=== PATIENT | male | born 1940 | race Caucasian/White ===

== ENCOUNTER → 2017-01-23 | Outpatient (CLI) | payer MEDICARE ==
[~2017-01-23] MED LIST: ASPIRINEC; AZOR 10-40 MG1 UDTAB PO; CERTAGEN PO; CHONDROITIN; CIPRO PO; DISCONTINUED MED; GLUCOSAMINE; LIPITOR PO; NEXIUM; NIASPAN; NORVASC; PLAVIX PO; PYRIDIUM PO; STOOL SOFTENER1 EACH; TOPROL XL; TOPROL XL PO; TYLOX1 CAP 5/50
--- NOTE | ~2017-01-23 | XA30 ---
[facility] A Service of [facility] & [facility] RADIOLOGY TEXT RESULTS PATIENT: LINDSAY DAVIS LOCATION: [facility] : 40 UNIT #: [id number] AGE: [address]: Niranjan Reed MD SEX: M ORDER DR: [id number] [facility] [address] [place], [place] [address] [id number] O MR#: [id number] Acc #: [id number] NAME: LINDSAY DAVIS : 1940 SEX: M STUDY DATE/TIME: 01/23/2017 13:57 UNIT: [facility] ROOM: STUDY DESCRIPTION: XA Arthrocentesis Major Joint Attending Physician: Niranjan Reed M.D. Referring Physician: Niranjan Reed M.D. Ordering Physician: Niranjan Reed M.D. Primary Care Physician: Jonathan SerranoPShashaRTom MEDICAL IMAGING REPORT This report is preliminary unless electronic signature is present EXAM Right hip arthrocentesis 01/23/2017 HISTORY Right hip pain for many months. PROCEDURE Informed consent was obtained. Skin site was selected with fluoroscopic guidance and marked, sterilely prepped and draped and locally anesthetized. A 22-gauge spinal needle was advanced into the hip joint and intraarticular needle tip position confirmed with contrast injection. This was followed by injection of 40 mg Depo-Medrol and 2 mL of 0.5% Marcaine. Patient reported pre-procedure pain level 2:10 and postprocedure pain level 0:10. Total fluoro time 0.2 minutes Single spot image obtained IMPRESSION Successful right hip injection with Depo-Medrol and Marcaine as above. Dictated by... Ari Yan M.D. THIS IS AN ELECTRONICALLY VERIFIED REPORT Ari Yan M.D. at 01/31/2017 5:04 PM JOSE FRANCISCO/pablito TD: 01/27/2017 18:00 JOB #: [id number] MEDICAL IMAGING REPORT [facility] A Service of [facility] & [facility] RADIOLOGY TEXT RESULTS PATIENT: LINDSAY DAVIS [facility] #: [id number] : 40 UNIT #: [id number] AGE: [address]: Niranjan Reed MD SEX: M ORDER DR: Page 1 of 1 COPY
== END | disposition home or self-care (01) ==
LOC: CIVR 13:37
DX: M25.551 Pain in right hip (principal); M19.90 Unspecified osteoarthritis, unspecified site
CPT/HCPCS: 77002; J1030; Q9966

== ENCOUNTER → 2017-06-27 | Outpatient (CLI) | payer OTHER ==
--- NOTE | ~2017-06-27 | US77 ---
[facility] A Service of [facility] & [facility] RADIOLOGY TEXT RESULTS PATIENT: LINDSAY DAVIS LOCATION: [facility] : 40 UNIT #: [id number] AGE: [address]: Miguel Hoffmann MD SEX: M ORDER DR: [id number] [facility] [address] [place], [place] [address] [id number] O MR#: [id number] Acc #: [id number] NAME: LINDSAY DAVIS : 1940 SEX: M STUDY DATE/TIME: 06/27/2017 13:30 UNIT: [facility] ROOM: STUDY DESCRIPTION: US Kidney Bilateral Complete Attending Physician: Miguel Hoffmann M.D. Referring Physician: Miguel Hoffmann M.D. Ordering Physician: Miguel Hoffmann M.D. Primary Care Physician: Tamia De La Fuente A.P.R.N. MEDICAL IMAGING REPORT This report is preliminary unless electronic signature is present EXAM Bilateral renal ultrasound. DATE 06/27/2017 HISTORY Stage III chronic kidney disease. Back pain for 20 years. Myocardial infarction in 1987. History of coronary stent placements. COMPARISON Bilateral renal ultrasound, 07/16/2010, CT abdomen and pelvis without contrast, 09/21/2013. FINDINGS The right kidney measures 10.2 x 4.9 x 4.6 cm. The left kidney measures 12.1 x 5.6 x 3.5 cm. A simple cyst is seen in the left mid kidney measuring 3.9 x 3.8 x 3.8 cm and is larger than on the 2010 study where measured 2.4 x 2.2 x 2.3 cm. Another cyst is seen in the left lower renal pole measuring 1.3 x 1.4 x 1.3 cm and can retrospectively be seen on the 2010 study where it measured 1.2 x 1.1 x 0.6 cm. Both kidneys demonstrate increased cortical echogenicity suggesting features of chronic medical renal disease. Cortical thickness, however, appears within normal limits. No shadowing renal stone or hydronephrosis is seen. Urinary bladder is decompressed. IMPRESSION 1. Two cysts are seen within left kidney, increased in size in the interpolar region, diminished in size in the lower pole, compared to 07/16/2010. [facility] A Service of [facility] & [facility] RADIOLOGY TEXT RESULTS PATIENT: LINDSAY DAVIS LOCATION: [facility] : 40 UNIT #: [id number] AGE: [address]: Miguel Hoffmann MD SEX: M ORDER DR: 2. Increased cortical echotexture bilaterally within the kidneys suggesting changes of chronic medical renal disease. 3. No hydronephrosis. Dictated by... Fannie Mazariegos M.D. THIS IS AN ELECTRONICALLY VERIFIED REPORT Fannie Mazariegos M.D. at 07/02/2017 3:27 PM TIERNEY/reji TD: 06/28/2017 12:44 JOB #: [id number] MEDICAL IMAGING REPORT Page 1 of 1 COPY
[2017-06-27 13:21] LABS: HEMATOCRIT 45.4 % (38.0-50.0); HEMOGLOBIN 15.4 gm/dL (13.0-16.0); MEAN CELL VOLUME 98.6 FL (83-96); MEAN CORPUSCULAR HEMOGLOBIN 33.6 PG (28-34); MEAN CORPUSCULAR HGB CONC 34.1 g/dL (30-36); MEAN PLATELET VOLUME 9.6 FL (6.5-11.5); RED BLOOD COUNT 4.6 X10e (3.90-5.60); RED CELL DISTRIBUTION WIDTH 13.5 % (11.0-15.5); URINE APPEARANCE CLEAR; URINE BLOOD NEG (NEG); URINE COLOR DK YELLOW; URINE GLUCOSE NEG (NEG); URINE KETONE TRACE (NEG); URINE LEUKOCYTE ESTERASE TRACE (NEG); URINE NITRATE NEG (NEG); URINE PROTEIN 1+ (NEG); URINE SPECIFIC GRAVITY 1.025 (1.003-1.035); WHITE BLOOD COUNT 8.1 X10e3 (4.0-10.5)
[2017-06-27 13:52] LABS: URINE BILIRUBIN POS (NEG)
[2017-06-27 13:59] LABS: TOTAL PROTEIN,RANDOM URINE 34 mg/dl (<10)
[2017-06-27 14:01] LABS: CREATININE,RANDOM URINE 502 mg/dL
[2017-06-27 14:02] LABS: ALBUMIN SERUM 4.5 g/dL (3.5-5.0); BILIRUBIN,TOTAL 1.2 mg/dL (0.2-2.0); BUN/CREATININE RATIO 11.87; CALCIUM SERUM 9.6 mg/dL (8.4-10.2); CREATININE SERUM 1.6 mg/dL (0.6-1.4); GLOM FILT RATE Estimated 41.3 mL/min (>60); MAGNESIUM 1.8 mg/dL (1.6-3.0); PHOSPHOROUS 3.1 mg/dL (2.5-4.6); POTASSIUM 4.5 mmol/L (3.5-5.1); PROTEIN TOTAL SERUM 7.5 g/dL (6.0-8.3)
[2017-06-27 14:07] LABS: URINE SOURCE CLEAN CATCH
[2017-06-30 21:32] LABS: HEP B SURFACE AG Nonreactive (Nonreactive); HEP C AB (HEPPAN) Nonreactive (Nonreactive); HEP C AB SIGNAL TO CUTOFF 0.02 ratio (<1.00); SPE A1GLOB (PNL) 0.3 g/dL (0.2-0.3); SPE A2GLOB (PNL) 0.7 g/dL (0.5-0.9); SPE ALB (PNL) 4.5 g/dL (3.8-4.8); SPE BETA 1 GLOBULIN 0.5 g/dL (0.4-0.6); SPE BETA 2 GLOBULIN 0.4 g/dL (0.2-0.5); SPETP (PNL) 7.3 g/dL (6.1-8.1)
[2017-06-30 21:34] LABS: CALCIUM (PTHINTACT) 9.7 mg/dL (8.6-10.3)
== END | disposition home or self-care (01) ==
LOC: CGUS 12:22
PROVIDERS: Internal Medicine Nephrology
DX: I12.9 Hypertensive chronic kidney disease with stage 1 through stage 4 chronic kidney disease, or unspecified chronic kidney disease (principal); N18.3 Chronic kidney disease, stage 3 (moderate); N20.0 Calculus of kidney; N28.1 Cyst of kidney, acquired
CPT/HCPCS: 36415; 76770; 80053; 81003; 82310; 82570; 83735; 83970; 84100; 84156; 84165; 85027; 86334; 86803; 87340